=== PATIENT | female | born 1990 | race Caucasian/White ===

== ENCOUNTER → 2023-12-13 | Outpatient (CLI) | payer OTHER ==
[2023-12-14 11:07] LABS: Rubeola IgG Antibody 27.1 AU/mL (Immune >16.4); Varicella Zoster IgG Antibody Reactive (Non Reactive)
[2023-12-14 12:07] LABS: Mumps IgG Antibody 9.1 AU/mL (Immune >10.9)
== END | disposition home or self-care (01) ==
LOC: LAB 09:07
PROVIDERS: ATTEND Emergency Medicine
DX: Z01.84 Encounter for antibody response examination (principal)
CPT/HCPCS: 36415; 86706; 86735; 86762; 86765; 86787